=== PATIENT | male | born 1995 | race Caucasian/White ===

== ENCOUNTER 2020-01-23 08:57 | Outpatient (CLI) | payer BC ==
--- NOTE | 2020-01-23 13:33 | ULT ---
ULTRASOUND ABDOMEN: 01/23/20 HISTORY: Abdominal pain. History of infectious mononucleosis. FINDINGS: The liver, spleen, pancreas, kidneys, gallbladder and visualized portions of the aorta and IVC appear normal. The common duct measures 3 mm in diameter. No free fluid is seen. IMPRESSION: Normal exam. POS: [facility]
== END 2020-01-23 08:58 | disposition home or self-care (01) ==
LOC: SCSULT 08:57
PROVIDERS: ATTEND Nurse Practitioner Family
DX: B27.10 Cytomegaloviral mononucleosis without complications (principal); R10.12 Left upper quadrant pain
CPT/HCPCS: 93975